=== PATIENT | male | born 1965 | race Caucasian/White ===

== ENCOUNTER 2017-11-05 11:19 | Emergency (ER) | payer OTHER ==
[~2017-11-05] VITALS: Ht 188 cm; Wt 113.4 kg
[2017-11-05] MEDS ORDERED: NAPROSYN500 MG PO (11:52)
[2017-11-05] MEDS ORDERED: SYNTHROID88 MCG PO (11:52)
[2017-11-05] MEDS ORDERED: ZANAFLEX2 M1 PO (11:53)
[2017-11-05] MEDS ORDERED: KEFLEX500 M1 PO (12:40)
[2017-11-05 12:50] VITALS: BP 130/65
== END 2017-11-05 12:50 | disposition home or self-care (01) ==
LOC: M.ERS 11:19
DX: Z98.890 Other specified postprocedural states (principal); S91.312A Laceration without foreign body, left foot, initial encounter; W22.8XXA Striking against or struck by other objects, initial encounter; Y93.89 Activity, other specified; Y92.89 Other specified places as the place of occurrence of the external cause; Y99.8 Other external cause status

== ENCOUNTER → 2019-12-22 | Outpatient (CLI) | payer OTHER ==
[~2019-12-22] MED LIST: KEFLEX500 M1 PO; NAPROSYN500 MG PO; SYNTHROID88 MCG PO; ZANAFLEX2 M1 PO
== END ==
LOC: M.RAD 13:45
DX: R05 Cough (principal); E03.9 Hypothyroidism, unspecified

== ENCOUNTER → 2020-03-27 | Outpatient (CLI) | payer OTHER | LOC: M.CT 07:31 | PROVIDERS: ATTEND Internal Medicine | DX: R05 Cough (principal) ==

== ENCOUNTER → 2020-08-14 | Outpatient (CLI) | payer OTHER ==
--- NOTE | 2020-08-14 11:15 | 2DMMODE ---
[place] [address] 2 D/M-MODE ECHOCARDIOGRAM Name: ABDIAZIZ MCGOWAN Room: [facility]#: [id number] Admission: 08/14/20 Attend Phys: Armando Dillon MD Discharge: Date of : 67 Date of Service: 08/14/20 1115 Report #: [id number] THIS REPORT FOR: cc: Cachorro Hagen Meng, Zhao Holkins, John M. MD [facility] ~ APPROVED REPORT Study performed: 08/14/2020 08:43:00 EXAM: Comprehensive 2D, Doppler, and color-flow Echocardiogram Patient Location: Out-Patient BSA: 2.42 HR: 75 bpm BP: 140/78 mmHg Other Information Study Quality: Fair Indications Dyspnea Peripheral Edema 2D Dimensions IVSd: 11.21 (7-11mm) LVOT Diam: 20.94 (18-24mm) LVDd: 54.36 mm PWd: 11.50 (7-11mm) Ascending Ao: 29.92 (22-36mm) LVDs: 37.40 (25-40mm) Aortic Root: 34.45 mm Volumes Left Atrial Volume (Systole) LA ESV Index: 20.50 mL/m2 Aortic Valve AoV Peak Mckay.: 1.10 m/s AO Peak Gr.: 4.84 mmHg LVOT Max P.93 mmHg AO Mean Gr.: 3.14 mmHg LVOT Mean P.39 mmHg LVOT Max V: 0.86 m/s AO V2 VTI: 22.69 cm LVOT Mean V: 0.53 m/s GUME (VTI): 2.91 cm2 LVOT V1 VTI: 19.18 [place] [address] 2 D/M-MODE ECHOCARDIOGRAM Name: ABDIAZIZ MCGOWAN Room: [facility]#: [id number] Admission: 08/14/20 Attend Phys: Armando Dillon MD Discharge: Date of : 67 Date of Service: 08/14/20 1115 Report #: [id number] E/A Ratio: 0.54 MV Decel. Time: 250.70 ms MV E Max Mckay.: 0.31 m/s MV PHT: 72.70 ms MVA (PHT): 3.03 cm2 TDI E/Lateral E': 4.43 E/Medial E': 6.20 Medial E' Mckay.: 0.05 m/s Lateral E' Mckay.: 0.07 m/s Pulmonary Valve PV Peak Mckay.: 1.12 m/s PV Peak Gr.: 4.98 mmHg Left Ventricle The left ventricle is normal size. There is normal LV segmental wall motion. There is normal left ventricular wall thickness. Left ventricular systolic function is normal. The left ventricular ejection fraction is within the normal range. LVEF is 50-55%. Grade I - abnormal relaxation pattern. Right Ventricle The right ventricle is normal size. The right ventricular systolic function is normal. Atria The left atrium size is normal. The right atrium size is normal. Aortic Valve The aortic valve is normal in structure. No aortic regurgitation is present. There is no aortic valvular stenosis. Mitral Valve The mitral valve is normal in structure. Mild mitral regurgitation. No evidence of mitral valve stenosis. Tricuspid Valve The tricuspid valve is normal in structure. There is no tricuspid valve regurgitation noted. Pulmonic Valve The pulmonary valve is normal in structure. Mild pulmonic regurgitation[place] [address] 2 D/M-MODE ECHOCARDIOGRAM Name: ABDIAZIZ MCGOWAN Room: [facility]#: [id number] Admission: 08/14/20 Attend Phys: Armando Dillon MD Discharge: Date of : 67 Date of Service: 08/14/20 1115 Report #: [id number] The aortic root is normal in size. IVC is normal in size and collapses >50% with inspiration. Pericardium There is no pericardial effusion. <Conclusion> The left ventricle is normal size. There is normal left ventricular wall thickness. Left ventricular systolic function is normal. The left ventricular ejection fraction is within the normal range. LVEF is 50-55%. Grade I - abnormal relaxation pattern. The right ventricle is normal size. The left atrium size is normal. The aortic valve is normal in structure. The mitral valve is normal in structure. The tricuspid valve is normal in structure. IVC is normal in size and collapses >50% with inspiration. There is no pericardial effusion. There is normal LV segmental wall motion. <ELECTRONICALLY SIGNED> By: Jonathan Cortes MD, [facility] 08/14/20 1115 1115 1115 Jonathan Cortes MD, FACC /INF
--- NOTE | 2020-08-22 11:18 | PF ---
[address] [address] PULMONARY FUNCTION REPORT Name: ABDIAZIZ MCGOWAN Room: [facility]#: [id number] Admission: 08/14/20 Attend Phys: Armando Dillon MD Discharge: Date of : 67 Report #: [id number] THIS REPORT FOR: cc: Cachorro Hagen Meng, Zhao ~ Armando Dillon MD DATE OF SERVICE: 08/14/2020 The FEV1/FVC ratio is normal at 76% with an FVC normal at 81% and FEV1 normal at 80%. The [id number] is also normal at 79%. After the administration of a bronchodilator, there is no significant change in any of these values. The patient's post-bronchodilator FEV1 is noted to be 3.49 liters. The total lung capacity is mildly decreased to 78% with a residual volume decreased to 65%. The DLCO as adjusted for hemoglobin is mildly decreased to 70%. IMPRESSION: 1. Spirometry is normal. 2. There is mild restriction on lung volumes. 3. Marked decrease in diffusing capacity of lungs for carbon monoxide to 70%. <ELECTRONICALLY SIGNED> By: Armando Dillon MD 08/22/20 1118 [id number] Dillon MD /nt
== END ==
LOC: M.CRD 07-10 15:05
PROVIDERS: ATTEND Internal Medicine Critical Care Medicine
DX: K76.0 Fatty (change of) liver, not elsewhere classified (principal); K76.89 Other specified diseases of liver; R16.1 Splenomegaly, not elsewhere classified; R06.02 Shortness of breath; J45.30 Mild persistent asthma, uncomplicated; R05 Cough; R10.11 Right upper quadrant pain